=== PATIENT | male | born 1955 | race Caucasian/White ===

== ENCOUNTER 2019-02-28 06:23 | Emergency (ER) | payer OTHER ==
[~2019-02-28] VITALS: Ht 170.2 cm; Wt 74.3 kg
--- NOTE | 2019-02-28 06:39 | NUR ---
HX OF CHRONIC INTERMITTENT PROSTATITIS. LOWER ABD CRAMPING AND "FULLNESS" SINCE LAST NIGHT. ONLY DRIBBLING WITH URINATION. MONITORS APPLIED, SIDERAILS UP X2, CALL LIGHT WITHIN REACH. ERP AT BEDSIDE FOR EVAL
[2019-02-28] MEDS ORDERED: LISI-167 PO (06:41)
[2019-02-28] MEDS ORDERED: LEVO100T5 PO (06:41)
[2019-02-28] MEDS ORDERED: CHOL200059 PO (06:41)
--- NOTE | 2019-02-28 06:51 | NUR ---
report given to anita florez
[2019-02-28] MEDS ORDERED: PHENAZOPYRIDINE 200 MG TABLET ONE (06:57)
[2019-02-28] MEDS ORDERED: PHENAZOPYRIDINE 200 MG TABLET PO ONE (07:00)
--- NOTE | 2019-02-28 07:02 | NUR ---
ua sent and patient updated on poc. lab at bed. call light with patient
[2019-02-28 07:14] LABS: CULTURE INDICATED? NO; MICROSCOPIC NOT IND
[2019-02-28 07:21] LABS: MEAN CORPUSCULAR HEMOGLOBIN 31.6 pg (27.5-34.5); MEAN CORPUSCULAR HGB CONC 33.8 g/dL (33.2-36.2); MEAN CORPUSCULAR VOLUME 93.5 fL (81-97); MEAN PLATELET VOLUME 6.5 fL (7.4-10.4); PLATELET COUNT 385 x10^3/uL (130-400); RED BLOOD COUNT 4.87 x10^6/uL (4.38-5.82); RED CELL DISTRIBUTION WIDTH 12.9 % (9.4-14.8)
[2019-02-28 07:32] LABS: ALBUMIN 3.9 g/dL (3.4-5.0); ANION GAP 5 mmol/L (5-15); CALCIUM 9.3 mg/dL (8.5-10.1); CHLORIDE 103 mmol/L (98-107)
[2019-02-28 07:33] LABS: CREATININE 1.14 mg/dL (0.7-1.3)
--- NOTE | 2019-02-28 07:36 | NUR ---
PATIENT PLACED IN RECHECK
[2019-02-28 07:53] LABS: BASOPHILS # (AUTO) 0.22 x10^3/uL (0-0.1); BASOPHILS % (AUTO) 2 % (0-1); EOSINOPHILS # (AUTO) 0.07 x10^3/uL (0-0.4); EOSINOPHILS % (AUTO) 1 % (1-7); LYMPHOCYTES # (AUTO) 1.32 x10^3/uL (1-3.4); LYMPHOCYTES % (AUTO) 11 % (22-44); MD SCAN; MONOCYTES # (AUTO) 1.08 x10^3/uL (0.2-0.8); MONOCYTES % (AUTO) 9 % (2-9); NEUTROPHILS % (AUTO) 78 % (42-75)
[2019-02-28 08:01] VITALS: BP 132/75
== END 2019-02-28 08:02 | disposition home or self-care (01) ==
LOC: ED 07:46
DX: N41.0 Acute prostatitis (principal); I10 Essential (primary) hypertension; E03.9 Hypothyroidism, unspecified
CPT/HCPCS: 36415; 80048; 81003; 82040; 85025; 99284